=== PATIENT | male | born 2000 ===

== ENCOUNTER 2024-04-19 14:13 | Outpatient (CLI) | payer OTHER, SELFPAY | END 2024-04-19 14:14 | disposition home or self-care (01) | PROVIDERS: PCP Physician Assistant Medical; Visit Provider Family Medicine | DX: M13.0 Polyarthritis, unspecified (principal); Z11.3 Encounter for screening for infections with a predominantly sexual mode of transmission | CPT/HCPCS: 86039; 86140; 86592; 86618; 86703; 87491; 87591 ==

== ENCOUNTER 2025-04-18 13:27 | Outpatient (CLI) | payer BC, SELFPAY | END 2025-04-18 13:28 | disposition home or self-care (01) | PROVIDERS: PCP Family Medicine; Visit Provider Family Medicine | DX: K21.9 Gastro-esophageal reflux disease without esophagitis (principal); R19.7 Diarrhea, unspecified; R53.83 Other fatigue; M79.10 Myalgia, unspecified site; J31.0 Chronic rhinitis; Z57.9 Occupational exposure to unspecified risk factor | CPT/HCPCS: 80053; 80061; 82306; 84443 ==

== ENCOUNTER 2025-09-07 15:44 | Outpatient (CLI) | payer BC, SELFPAY | END 2025-09-07 15:45 | disposition home or self-care (01) | PROVIDERS: PCP Family Medicine; Visit Provider Family Medicine | DX: R74.01 Elevation of levels of liver transaminase levels (principal); E55.9 Vitamin D deficiency, unspecified | CPT/HCPCS: 80053; 82306; 82784; 86231; 86258; 86364 ==